=== PATIENT | female | born 1960 | race Caucasian/White ===

== ENCOUNTER 2017-01-28 06:05 | Day surgery (SDC) | payer OTHER ==
[2017-01-23 13:16] LABS: Basophils # (auto) 0.1 uL; Eosinophils # (auto) 0.1 uL; Eosinophils % (auto) 2.3 % (0.0-7.0); Hematocrit 41.5 % (36.0-46.0); Hemoglobin 13.9 g/dL (12.2-16.2); Lymphocytes % (auto) 36.4 % (10.0-50.0); Mean Corpuscular Hgb Conc. 33.6 g/dL (32.0-36.0); Mean Corpuscular Volume 92.3 fL (80.0-100.0); Mean Platelet Volume 11.4 fL (7.4-10.4); Monocytes # (auto) 0.4 uL; Monocytes % (auto) 7.3 % (0.0-12.0); Neutrophils # (auto) 2.9 uL; Platelet Count (auto) 183 10^3/uL (140-450); Red Cell Distribution Width 13.7 % (11.6-16.0); SUSPECT VIEW TRANSMISSION; White Blood Cell 5.4 10^3/uL (4.4-10.8)
[2017-01-23 13:31] LABS: Platelet Estimate Adequate; RBC Morphology Normal
[2017-01-23 13:36] LABS: INR 0.92 (0.9-1.15)
[2017-01-23 13:41] LABS: Albumin 3.5 g/dL (3.4-5.0); BUN/Creatinine Ratio 24.2; Bilirubin, Total 0.4 mg/dL (0.2-1.0); Calcium 8.7 mg/dL (8.5-10.1); Total Protein 6.9 g/dL (6.4-8.2)
[2017-01-23 13:46] LABS: Urine Bilirubin Negative (Negative); Urine Color Yellow (Yellow); Urine Ketone Negative (Negative); Urine Nitrite Negative (Negative); Urine RBC 5 /hpf (0 - 4); Urine Squamous Epithelial Cell FEW /hpf (<5); Urine Urobilinogen Normal (Negative)
[2017-01-23 14:01] LABS: Urine Blood 1+ /uL (Negative); Urine Glucose 4+ mg/dL (Normal)
[~2017-01-28] VITALS: Ht 165.1 cm; Wt 81.6 kg
[~2017-01-28 06:05] MED LIST: ATOR10TA PO; INSLANTI SC; SITA50TA PO; VARE1TAB PO
[2017-01-28] MEDS ORDERED: CLINDAMYCIN 600MG IV 50 ML IV ONE (06:45)
[2017-01-28] MEDS ORDERED: NEOMYCIN-BACITRACIN-POLYM 15GM TOP OINT TOP ONE (06:50)
[2017-01-28] MEDS ORDERED: BUPIVACAINE 0.75% INJ 10ML MPV SDV IJ ONE ×2 (06:50→07:45)
[2017-01-28] MEDS ORDERED: methylPREDNISolone ACETATE 80 MG/ML VL ONE (06:50)
[2017-01-28] MEDS ORDERED: ceFAZolin 1GM VL ONE (06:50)
[2017-01-28] MEDS ORDERED: fentaNYL CITRATE 100 MCG/2 ML VL ONE (07:25)
[2017-01-28] MEDS ORDERED: MIDAZOLAM HCL 1MG/1ML-2 ML VIAL ONE (07:25)
[2017-01-28] MEDS ORDERED: MEPERIDINE HCL (50 MG/ML) 1 ML VIAL ONE (07:26)
[2017-01-28] MEDS ORDERED: ePHEDrine SULFATE 50 MG/ML AMP IV PRN (08:00)
[2017-01-28] MEDS ORDERED: ACCU-CHEK COMFORT CURVE STRIP VI ONE (08:00)
[2017-01-28] MEDS ORDERED: KETOROLAC TROMETH 30 MG/ML 1ML VIAL IV ONE (08:00)
[2017-01-28] MEDS ORDERED: HYDROmorphone HCL 2 MG/ML VL IV PRN (08:00)
[2017-01-28] MEDS ORDERED: MIDAZOLAM HCL 1MG/1ML-2 ML VIAL IV PRN (08:00)
[2017-01-28] MEDS ORDERED: ONDANSETRON HCL 4 MG/2 ML VIAL IV ONE (08:00)
[2017-01-28] MEDS ORDERED: LABETALOL HCL 5 MG/ML 4ML SYRINGE IV PRN (08:00)
[2017-01-28] MEDS ORDERED: MORPHINE SULF INJ 2 MG/ML SYRINGE 1ML IV PRN (08:00)
[2017-01-28] MEDS ORDERED: PROPOFOL 10 MG/ML 20 ML IV ONE (08:16)
[2017-01-28] MEDS ORDERED: DEXAMETHASONE SOD PHOS 10MG/1ML VIAL INJ ONE (08:16)
[2017-01-28 10:03] VITALS: BP 154/96
== END 2017-01-28 10:13 | disposition home or self-care (01) ==
LOC: SUR 06:05
PROVIDERS: ATTEND Podiatrist Foot & Ankle Surgery
DX: M20.5X2 Other deformities of toe(s) (acquired), left foot (principal); M20.41 Other hammer toe(s) (acquired), right foot; T36.0X5A Adverse effect of penicillins, initial encounter; Z98.51 Tubal ligation status; E11.9 Type 2 diabetes mellitus without complications; Z87.891 Personal history of nicotine dependence
CPT/HCPCS: 28285; 36415; 80053; 81001; 82962; 84702; 85025; 85610; 85730; 88304; 88311; J0690; J1100; J2175; J2250; J2704; J3010; J3490; L3260; Q4139

== ENCOUNTER 2017-02-01 07:11 | Emergency (ER) | payer OTHER ==
[~2017-02-01] VITALS: Ht 165.1 cm; Wt 81.6 kg
[2017-02-01 07:16] VITALS: BP 140/88
== END 2017-02-01 09:00 | disposition home or self-care (01) ==
LOC: EDBD 07:11 → ER 07:16
DX: M20.42 Other hammer toe(s) (acquired), left foot (principal); M20.41 Other hammer toe(s) (acquired), right foot; G89.18 Other acute postprocedural pain; Z79.4 Long term (current) use of insulin; Z88.0 Allergy status to penicillin; E11.9 Type 2 diabetes mellitus without complications; F17.210 Nicotine dependence, cigarettes, uncomplicated

== ENCOUNTER 2021-05-15 21:52 | Emergency (ER) | payer OTHER ==
[~2021-05-15] VITALS: Ht 165.1 cm; Wt 72.6 kg
[2021-05-15 23:12] LABS: Basophils # (auto) 0 10 ^3/uL (0-0.2); Basophils % (auto) 0.7 % (0.0-2.0); Eosinophils # (auto) 0.1 10 ^3/uL (0-0.8); Hematocrit 40.7 % (36.0-46.0); Hemoglobin 13.9 g/dL (12.2-16.2); Lymphocytes # (auto) 2.1 10 ^3/uL (0.4-5.4); Lymphocytes % (auto) 31.8 % (10.0-50.0); Mean Corpuscular Hgb Conc. 34.1 g/dL (32.0-36.0); Mean Corpuscular Volume 90.8 fL (80.0-100.0); Monocytes # (auto) 0.4 10 ^3/uL (0-1.3); Monocytes % (auto) 6.4 % (0.0-12.0); Neutrophils # (auto) 3.8 10 ^3/uL (1.6-8.6); Neutrophils % (auto) 59.1 % (37.0-80.0); Nucleated Red Blood Cells % 0.1 %; Red Blood Cells 4.48 10^6/uL (4.0-5.20); White Blood Cell 6.5 10^3/uL (4.4-10.8)
[2021-05-15 23:25] LABS: Albumin 3.6 g/dL (3.4-5.0); BUN/Creatinine Ratio 19.7; Calcium 8.8 mg/dL (8.5-10.1); Potassium 4.1 mmol/L (3.5-5.1)
[2021-05-15 23:28] LABS: Bilirubin, Total 0.5 mg/dL (0.2-1.0); Total Protein 7.1 g/dL (6.4-8.2)
[2021-05-15 23:54] LABS: Urine Bacteria NONE SEEN /hpf (None Seen); Urine Blood 1+ /uL (Negative); Urine Mucus FEW (None Seen); Urine Specific Gravity 1.018 (1.001-1.035); Urine WBC 44 /hpf (0 - 5); Urine WBC Clumps PRESENT /hpf (None Seen)
[2021-05-16 04:30] VITALS: BP 117/64
== END 2021-05-16 04:32 | disposition home or self-care (01) ==
LOC: ER 21:54
DX: N20.0 Calculus of kidney (principal); E11.9 Type 2 diabetes mellitus without complications; F17.210 Nicotine dependence, cigarettes, uncomplicated; Z88.0 Allergy status to penicillin; Z98.51 Tubal ligation status
CPT/HCPCS: 36415; 74176; 80053; 81001; 83690; 85025

== ENCOUNTER 2021-05-19 01:33 | Emergency (ER) | payer OTHER ==
[~2021-05-19] VITALS: Ht 165.1 cm; Wt 72.6 kg
[2021-05-19] MEDS ORDERED: MORPHINE SULFATE 4 MG/ML SYR/VIAL IV ONE (03:00)
[2021-05-19] MEDS ORDERED: SODIUM CHLORIDE 0.9% 1,000 ML IV ONE (03:00)
[2021-05-19 03:45] LABS: Basophils # (auto) 0.1 10 ^3/uL (0-0.2); Basophils % (auto) 1.1 % (0.0-2.0); Eosinophils # (auto) 0.1 10 ^3/uL (0-0.8); Eosinophils % (auto) 1.3 % (0.0-7.0); Hemoglobin 13.4 g/dL (12.2-16.2); Lymphocytes # (auto) 1.7 10 ^3/uL (0.4-5.4); Mean Corpuscular Hemoglobin 30.5 pg (28.0-32.0); Mean Corpuscular Hgb Conc. 33.4 g/dL (32.0-36.0); Mean Corpuscular Volume 91.2 fL (80.0-100.0); Monocytes # (auto) 0.6 10 ^3/uL (0-1.3); Monocytes % (auto) 9.2 % (0.0-12.0); Neutrophils # (auto) 3.6 10 ^3/uL (1.6-8.6); Neutrophils % (auto) 60.4 % (37.0-80.0); Nucleated Red Blood Cells % 0.2 %; Red Blood Cells 4.39 10^6/uL (4.0-5.20); Red Cell Distribution Width 13.4 % (11.8-14.3)
[2021-05-19 03:59] LABS: Albumin 3.7 g/dL (3.4-5.0); Calcium 8.7 mg/dL (8.5-10.1); Potassium 3.9 mmol/L (3.5-5.1)
[2021-05-19 04:03] LABS: BUN/Creatinine Ratio 21.4; Bilirubin, Total 0.6 mg/dL (0.2-1.0)
[2021-05-19 04:37] LABS: Urine Bacteria MOD /hpf (None Seen); Urine Blood Negative /uL (Negative); Urine Mucus FEW (None Seen); Urine Specific Gravity 1.023 (1.001-1.035); Urine WBC 37 /hpf (0 - 5)
[2021-05-19 05:07] VITALS: BP 125/77
== END 2021-05-19 05:13 | disposition home or self-care (01) ==
LOC: ER 01:34
DX: N20.0 Calculus of kidney (principal); N39.0 Urinary tract infection, site not specified; E11.9 Type 2 diabetes mellitus without complications; E78.00 Pure hypercholesterolemia, unspecified; Z88.0 Allergy status to penicillin; Z79.899 Other long term (current) drug therapy; Z79.4 Long term (current) use of insulin; Z98.51 Tubal ligation status; Z87.891 Personal history of nicotine dependence
CPT/HCPCS: 36415; 80053; 81001; 85025

== ENCOUNTER 2022-09-03 19:04 | Emergency (ER) | payer OTHER ==
[~2022-09-03] VITALS: Ht 165.1 cm; Wt 82.8 kg
[2022-09-04] MEDS ORDERED: CEPH-510 PO (00:23)
[2022-09-04] MEDS ORDERED: CEPHALEXIN 250 MG CAP PO ONE (00:30)
[2022-09-04] MEDS ORDERED: TETANUS-DIPTH-ACEL PERTUSSIS 0.5ML SYR Tdap IM ONE (00:30)
[2022-09-04 01:03] VITALS: BP 139/71
== END 2022-09-04 01:29 | disposition home or self-care (01) ==
LOC: ER 19:04
DX: S91.332A Puncture wound without foreign body, left foot, initial encounter (principal); L03.116 Cellulitis of left lower limb; E11.9 Type 2 diabetes mellitus without complications; E78.5 Hyperlipidemia, unspecified; Z88.0 Allergy status to penicillin; Z79.899 Other long term (current) drug therapy; Z79.84 Long term (current) use of oral hypoglycemic drugs; Z87.442 Personal history of urinary calculi; Z98.51 Tubal ligation status; F17.210 Nicotine dependence, cigarettes, uncomplicated; W22.8XXA Striking against or struck by other objects, initial encounter; Y93.89 Activity, other specified; Y92.89 Other specified places as the place of occurrence of the external cause; Y99.8 Other external cause status
CPT/HCPCS: 90471; 90715

== ENCOUNTER 2022-09-18 17:50 | Emergency (ER) | payer SELFPAY ==
[~2022-09-18] VITALS: Ht 162.6 cm; Wt 81.7 kg
[~2022-09-18 17:50] MED LIST changes: +CEPH-510 PO
[2022-09-18 21:30] VITALS: BP 132/87
== END 2022-09-18 21:31 | disposition home or self-care (01) ==
LOC: ER 17:50
DX: S91.332D Puncture wound without foreign body, left foot, subsequent encounter (principal); E11.9 Type 2 diabetes mellitus without complications; E78.5 Hyperlipidemia, unspecified; Z79.899 Other long term (current) drug therapy; Z87.442 Personal history of urinary calculi; Z98.51 Tubal ligation status; Z87.891 Personal history of nicotine dependence; Z88.0 Allergy status to penicillin; X58.XXXD Exposure to other specified factors, subsequent encounter
CPT/HCPCS: 73630